=== PATIENT | female | born 1970 | race Caucasian/White ===

== ENCOUNTER 2023-04-02 13:45 | Emergency (ER) | payer OTHER ==
[2023-04-02 14:11] VITALS: TEMP 98.6
--- NOTE | 2023-04-02 14:15 | ERPHSYRPT ---
- History of Present Illness Time Seen by Provider: 04/02/23 14:15 Source: patient Exam Limitations: no limitations Patient Subjective Stated Complaint: headaches Triage Nursing Assessment: patient stated headaches started approx 3 weeks ago and has had them daily. no headache history Physician History: This is a 53-year-old white female patient of nurse practitioner Giuseppe who presents with a 3-week history of daily headaches. Despite the use of 2 Excedrin tablets today, her headache was worse. It is generalized in location and somewhat throbbing. Seems to be worse when she looks up or tilts her head upward as if looking into the taj. She has no visual changes. Prior to 3 weeks ago she is never had this type of issue. She denies trauma to the area. She has not had fever, chills. She denies chest pain. She is not on any new medications. Patient has a history of diabetes and hypertension Timing/Duration: week(s) (3) Quality: pressure Head Pain Location: global Severity of Pain-Max: moderate Severity of Pain-Current: moderate Recent Head Trauma: no recent headache/trauma Modifying Factors: Improves With: position (Worse when tilting her head up as if looking at the taj) Associated Symptoms: No dizziness, No seizures, No sensitive to light, No stiff neck, No vision changes Previous symptoms: no prior history, no recent treatment Allergies/Adverse Reactions: No Known Drug Allergies Allergy (Unverified 04/02/23 14:18) Home Medications: Lisinopril 20 mg [Zestril 20 MG] 20 mg PO DAILY 04/02/23 [History] Metformin HCl 1,000 mg PO BID 04/02/23 [History] Hx Tetanus, Diphtheria Vaccination/Date Given: Yes Hx Influenza Vaccination/Date Given: No Hx Pneumococcal Vaccination/Date Given: No Travel Risk - International Travel Have you traveled outside of the country in past 3 weeks: No - Coronavirus Screening Are you exhibiting any of the following symptoms?: No Close contact with a COVID-19 positive Pt in past 14-21 Days: No - Vaccine Status Have you recieved a Covid-19 vaccination: No - Review of Systems Constitutional: No Symptoms Eyes: No Symptoms Ears, Nose, & Throat: No Symptoms Respiratory: No Symptoms Cardiac: No Symptoms Abdominal/Gastrointestinal: No Symptoms Genitourinary Symptoms: No Symptoms Musculoskeletal: No Symptoms Skin: Skin Lesions Neurological: Headache Psychological: No Symptoms Endocrine: No Symptoms Hematologic/Lymphatic: No Symptoms Immunological/Allergic: No Symptoms All Other Systems: Reviewed and Negative - Past Medical History Pertinent Past Medical History: Yes Cardiac History: Hypertension Endocrine Medical History: Diabetes Type II - Past Surgical History Past Surgical History: No Gastrointestinal: Appendectomy Female Surgical History: Tubal Ligation - Social History Smoking Status: Former smoker Drug Use: none Patient Lives Alone: No - Nursing Vital Signs Nursing Vital Signs: Initial Vital Signs Temperature 98.6 F 04/02/23 14:00 Pulse Rate 109 H 04/02/23 14:00 Blood Pressure 143/86 04/02/23 14:00 O2 Sat by Pulse Oximetry 98 04/02/23 14:00 Pain Scale Pain Intensity 7 - Physical Exam General Appearance: no apparent distress, alert, anxiety Eye Exam: PERRL/EOMI, eyes nml inspection Ears, Nose, Throat Exam: normal ENT inspection, moist mucous membranes Neck Exam: normal inspection, non-tender, supple, full range of motion Respiratory Exam: normal breath sounds, lungs clear, respiratory distress, airway intact, No chest tenderness Cardiovascular Exam: regular rate/rhythm, normal heart sounds, normal peripheral pulses Gastrointestinal/Abdominal Exam: soft, normal bowel sounds, No tenderness Back Exam: normal inspection, normal range of motion, No CVA tenderness, No vertebral tenderness Extremity Exam: normal inspection, normal range of motion, pelvis stable Mental Status Exam: alert, 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, 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 Exam: normal hearing, normal speech, PERRL, tongue midline Coordination/Gait Exam: normal gait, normal cerebellar function Motor/Sensory Exam: no motor deficit, no sensory deficit, no pronator drift Skin Exam: normal color, warm, dry Lymphatic Exam: No adenopathy SpO2 Interpretation: normal SpO2: 98 O2 Delivery: Room Air - Course Nursing assessment & vital signs reviewed: Yes Ordered Tests: Active Orders 24 hr Category Date Time Status Computational Physicist STAT Care 04/02/23 14:49 Active EKG-ER Only STAT Care 04/02/23 14:49 Active IV Insertion STAT Care 04/02/23 14:49 Active NPO (ED) STAT Care 04/02/23 14:49 Active Pulse Oximetry (ED) STAT Care 04/02/23 14:49 Active HEAD WITHOUT CONTRAST [CT] Stat Exams 04/02/23 14:15 Completed MRI BRAIN W & W/O CONTRAST [MRI] Stat Exams 04/02/23 14:51 Completed CBC W DIFF Stat Lab 04/02/23 15:00 Completed CMP Stat Lab 04/02/23 15:00 Completed MONO SCREEN Stat Lab 04/02/23 15:38 Completed UA W/RFX UR CULTURE Stat Lab 04/02/23 15:58 Completed Medication Summary Generic Name Dose Route Start Last Admin Trade Name Bing PRN Reason Stop Dose Admin Ketorolac Tromethamine 30 mg 04/02/23 16:44 Ketorolac Tromethamine 30 Mg/Ml Inj IV 04/02/23 16:45 STAT ONE Morphine Sulfate 2 mg 04/02/23 16:44 Morphine Sulfate 2 Mg/Ml Inj IV 04/02/23 16:45 STAT ONE Prochlorperazine Edisylate 5 mg 04/02/23 16:44 Prochlorperazine Edisylate 10 Mg/2 Ml Vial IV 04/02/23 16:45 STAT ONE Discontinued Medications Generic Name Dose Route Start Last Admin Trade Name Bing PRN Reason Stop Dose Admin Hydrocodone Bitart/Acetaminophen 1 tab 04/02/23 14:50 04/02/23 14:56 Hydrocodone/Apap 5/325 1 Tab Tablet PO 04/02/23 14:51 1 tab STAT ONE Administration Hydrocodone Bitart/Acetaminophen Confirm 04/02/23 14:55 Hydrocodone/Apap 5/325 1 Tab Tablet Administered 04/02/23 14:56 Dose 1 tab .ROUTE .STK-MED ONE Lab/Rad Data: Laboratory Result Diagrams 04/02/23 15:00 04/02/23 15:00 Laboratory Results 04/02/23 04/02/23 04/02/23 Range/Units Unknown 15:58 15:38 WBC (4.0-10.5) x10^3/uL RBC (4.1-5.4) x10^6/uL Hgb (12.0-16.0) g/dL Hct (35-47) % MCV (78-100) fL MCH (26-32) pg MCHC (32-36) g/dL RDW (11.5-14.0) % Plt Count (150-450) x10^3/uL MPV (7.5-11.0) fL Gran % (36.0-66.0) % Immature Gran % (Auto) (0.00-0.4) % Nucleat RBC Rel Count (0.00-0.1) % Eos # (Auto) (0-0.5) x10^3/uL Immature Gran # (Auto) (0.00-0.03) x10^3u/L Absolute Lymphs (auto) (1.0-4.6) x10^3/uL Absolute Monos (auto) (0.0-1.3) x10^3/uL Absolute Nucleated RBC (0.00-0.01) x10^3u/L Lymphocytes % (24.0-44.0) % Monocytes % (0.0-12.0) % Eosinophils % (0.00-5.0) % Basophils % (0.0-0.4) % Absolute Granulocytes (1.4-6.9) x10^3/uL Basophils # (0-0.4) x10^3/uL Sodium (137-145) mmol/L Potassium (3.5-5.1) mmol/L Chloride (98-107) mmol/L Carbon Dioxide (22-30) mmol/L Anion Gap (5-15) MEQ/L BUN (7-17) mg/dL Creatinine (0.52-1.04) mg/dL Estimated GFR ML/MIN Glucose (74-106) mg/dL Calcium (8.4-10.2) mg/dL Total Bilirubin (0.2-1.3) mg/dL AST (14-36) U/L ALT (0-35) U/L Alkaline Phosphatase (38-126) U/L Serum Total Protein (6.3-8.2) g/dL Albumin (3.5-5.0) g/dL Urine Color Yellow (Yellow) Urine Appearance Clear (Clear) Urine pH 7.5 (4.6-8.0) Ur Specific [place] <=1.005 (1.005-1.030) Urine Protein Negative (Negative) Urine Glucose (UA) Negative (Negative) mg/dL Urine Ketones Negative (Negative) Urine Blood Negative (Negative) Urine Nitrite Negative (Negative) Urine Bilirubin Negative (Negative) Urine Urobilinogen 0.2 (0.2) mg/dL Ur Leukocyte Esterase Negative (Negative) U Hyaline Cast (Auto) NONE SEEN (0-2) /LPF Urine Microscopic RBC 0-2 (0-5) /HPF Urine Microscopic WBC 0-2 (0-5) /HPF Ur Epithelial Cells None Seen (None Seen) /HPF Urine Bacteria None Seen (None Seen) /HPF Urine Culture Reflexed NO (NO) Monoscreen NEGATIVE (NEGATIVE) Influenza Type A Ag NEGATIVE (NEGATIVE) Influenza Type B Ag NEGATIVE (NEGATIVE) RSV (PCR) NEGATIVE (NEGATIVE) SARS-CoV-2 (PCR) NEGATIVE (NEGATIVE) 04/02/23 04/02/23 Range/Units 15:00 15:00 WBC 5.1 (4.0-10.5) x10^3/uL RBC 4.31 (4.1-5.4) x10^6/uL Hgb 12.7 (12.0-16.0) g/dL Hct 38.5 (35-47) % MCV 89.3 (78-100) fL MCH 29.5 (26-32) pg MCHC 33.0 (32-36) g/dL RDW 12.1 (11.5-14.0) % Plt Count 247 (150-450) x10^3/uL MPV 10.4 (7.5-11.0) fL Gran % 56.8 (36.0-66.0) % Immature Gran % (Auto) 0.2 (0.00-0.4) % Nucleat RBC Rel Count 0.0 (0.00-0.1) % Eos # (Auto) 0.12 (0-0.5) x10^3/uL Immature Gran # (Auto) 0.01 (0.00-0.03) x10^3u/L Absolute Lymphs (auto) 1.53 (1.0-4.6) x10^3/uL Absolute Monos (auto) 0.52 (0.0-1.3) x10^3/uL Absolute Nucleated RBC 0.00 (0.00-0.01) x10^3u/L Lymphocytes % 30.0 (24.0-44.0) % Monocytes % 10.2 (0.0-12.0) % Eosinophils % 2.4 (0.00-5.0) % Basophils % 0.4 (0.0-0.4) % Absolute Granulocytes 2.90 (1.4-6.9) x10^3/uL Basophils # 0.02 (0-0.4) x10^3/uL Sodium 139 (137-145) mmol/L Potassium 3.8 (3.5-5.1) mmol/L Chloride 103 (98-107) mmol/L Carbon Dioxide 26 (22-30) mmol/L Anion Gap 12.9 (5-15) MEQ/L BUN 18 H (7-17) mg/dL Creatinine 0.86 (0.52-1.04) mg/dL Estimated GFR 81.2 ML/MIN Glucose 170 H (74-106) mg/dL Calcium 9.9 (8.4-10.2) mg/dL Total Bilirubin 0.20 (0.2-1.3) mg/dL AST 35 (14-36) U/L ALT 55 H (0-35) U/L Alkaline Phosphatase 57 (38-126) U/L Serum Total Protein 7.8 (6.3-8.2) g/dL Albumin 4.6 (3.5-5.0) g/dL Urine Color (Yellow) Urine Appearance (Clear) Urine pH (4.6-8.0) Ur Specific [place] (1.005-1.030) Urine Protein (Negative) Urine Glucose (UA) (Negative) mg/dL Urine Ketones (Negative) Urine Blood (Negative) Urine Nitrite (Negative) Urine Bilirubin (Negative) Urine Urobilinogen (0.2) mg/dL Ur Leukocyte Esterase (Negative) U Hyaline Cast (Auto) (0-2) /LPF Urine Microscopic RBC (0-5) /HPF Urine Microscopic WBC (0-5) /HPF Ur Epithelial Cells (None Seen) /HPF Urine Bacteria (None Seen) /HPF Urine Culture Reflexed (NO) Monoscreen (NEGATIVE) Influenza Type A Ag (NEGATIVE) Influenza Type B Ag (NEGATIVE) RSV (PCR) (NEGATIVE) SARS-CoV-2 (PCR) (NEGATIVE) - Progress Progress: re-examined Air Movement: good Progress Note: 04/02/23 15:42 This patient's medical issue is 1 of moderate complexity. Level complex in the workup performed is based on review of the patient's past medical history, review the patient's medication list, reviewed patient's drug allergy list, history present illness and physical findings on examination. Workup in this patient includes placement of intravenous line, urinalysis, CBC, CMP, viral studies, CT scan of the head. 04/02/23 16:28 CT scan of the head without contrast shows atrophy within normal limits for age. There is a remote lacunar infarct of the right basal ganglia 04/02/23 16:32 MRI of the brain with and without contrast was interpreted by the radiologist and I reviewed the impression. The impression states age-appropriate global atr ophy. Minimal periventricular degenerative micro ischemia bilaterally. Tiny remote lacunar infarct right basal ganglia. Remaining MRI of the brain with contrast negative. 04/02/23 16:46 I reviewed and interpreted the laboratory results. There are no acute, emergent laboratory result findings. Blood Culture(s) Obtained: No Antibiotics given: No Counseled pt/family regarding: lab results, diagnosis, need for follow-up, rad results Medical Desision Making - Diagnostic Testing Diagnostic test were ordered, analyzed, and reviewed by me: Yes Radiological Interpretation: Reviewed by me, Teleradiologist Report - Departure Departure Disposition: Home Clinical Impression: Headache Condition: Stable Critical Care Time: No Referrals: CONSUELO OLIVEROS NP [NON-STAFF PHY W/O PRIVILEGES] - Follow up/PCP as directed Additional Instructions: Call your primary care provider tomorrow, 04/03/2023 to make arranges for follow-up appointment for further evaluation and management and possible referral to a neurologist.
--- NOTE | 2023-04-02 14:37 | XRAY ---
Indication: Headache 3 weeks. Multiple contiguous axial images obtained through the head without contrast. Comparison: None Age-appropriate global atrophy. Small remote lacunar infarct right basal ganglia. No acute intracranial hemorrhage, abnormal extra axial fluid collection, or mass effect. Fourth ventricle is midline without hydrocephalus. Aguilar-white matter differentiation preserved. Bony calvarium intact.. Visualized paranasal sinuses and mastoid air cells are clear. Impression: Atrophy within normal limits for patient's age. Remote lacunar infarct right basal ganglia. Remaining CT head without contrast exam is negative.
[2023-04-02] MEDS ORDERED: NORCO 5/325 MG PO ONE (14:50)
[2023-04-02] MEDS ORDERED: NORCO 5/325 MG ONE (14:55)
[2023-04-02 15:41] LABS: INFLUENZA A NEGATIVE (NEGATIVE); INFLUENZA B NEGATIVE (NEGATIVE); RESPIRATORY SYNCTIAL VIRUS NEGATIVE (NEGATIVE); SARS-CoV-2 Xpert Express NEGATIVE (NEGATIVE)
[2023-04-02 15:57] LABS: BASOPHIL % 0.4 % (0.0-0.4); Basophil (Absolute #) 0.02 x10^3/uL (0-0.4); Eosinophil % 2.4 % (0.00-5.0); Eosinophil (Absolute #) 0.12 x10^3/uL (0-0.5); Hematocrit 38.5 % (35-47); Hemoglobin 12.7 g/dL (12.0-16.0); IMMATURE GRAN # 0.01 x10^3u/L (0.00-0.03); IMMATURE GRAN % 0.2 % (0.00-0.4); Lymphocyte (Absolute #) 1.53 x10^3/uL (1.0-4.6); Mean Cell Volume 89.3 fL (78-100); Mean Corpuscular Hemoglobin 29.5 pg (26-32); Mean Platelet Volume 10.4 fL (7.5-11.0); Monocyte (Absolute #) 0.52 x10^3/uL (0.0-1.3); Monocytes % 10.2 % (0.0-12.0); Neutrophil % 56.8 % (36.0-66.0); Platelet Count 247 x10^3/uL (150-450); Red Blood Count 4.31 x10^6/uL (4.1-5.4); Red Cell Distribution Width 12.1 % (11.5-14.0); White Blood Count 5.1 x10^3/uL (4.0-10.5)
[2023-04-02 16:03] LABS: ALBUMIN 4.6 g/dL (3.5-5.0); ANION GAP 12.9 MEQ/L (5-15); BILIRUBIN,TOTAL 0.2 mg/dL (0.2-1.3); Calcium 9.9 mg/dL (8.4-10.2); Creatinine 1 0.86 mg/dL (0.52-1.04); EST GLOMERULAR FILTRATION RATE 81.2 ML/MIN; Potassium 3.8 mmol/L (3.5-5.1); Total Protein 7.8 g/dL (6.3-8.2)
[2023-04-02 16:07] LABS: Appearance Clear (Clear); Bilirubin Negative (Negative); Blood Negative (Negative); Glucose, Urine Negative (Negative); Ketones Negative (Negative); Leukocyte Esterase Negative (Negative); Nitrite Negative (Negative); Ph 7.5 (4.6-8.0); Protein,Urine Dip Negative (Negative); Specific Gravity <=1.005 (1.005-1.030); Urobilinogen 0.2 mg/dL (0.2)
[2023-04-02 16:08] LABS: Bacteria None Seen /HPF (None Seen); Epithelial Cells None Seen /HPF (None Seen); Hyaline Casts NONE SEEN /LPF (0-2); RBC 0-2 /HPF (0-5); WBC 0-2 /HPF (0-5)
[2023-04-02 16:13] LABS: ADD URINE CULTURE? NO (NO)
[2023-04-02 16:21] VITALS: BP 167/95; PULSE 86; RESP 18
[2023-04-02 16:29] VITALS: O2SAT 98
--- NOTE | 2023-04-02 16:32 | XRAY ---
Indication: Headache 3 weeks. Sagittal, coronal, and axial MRI brain performed using pre and post T1, T2, FLAIR, diffusion, and ADC sequences. 15 cc Dotarem contrast used. Comparison: None Age-appropriate global atrophy and and minimal periventricular degenerative micro-ischemia bilaterally. Tiny remote lacunar infarct right basal ganglia. No acute intracranial hemorrhage, abnormal extra-axial fluid collection, or mass effect. Diffusion images negative for restricted signal. Following gadolinium, no abnormal enhancing intra or extra-axial mass. Fourth ventricle is midline without hydrocephalus. 7/8 cranial nerve complex bilaterally symmetric. Normal flow void signal within the major intracerebral circulation. Normal appearing craniocervical junction and sella turcica. Paranasal sinuses are clear. Impression: Atrophy and degenerative micro-ischemia within normal limits for patient's age. Remote lacunar infarct right basal ganglia. Remaining MRI brain with contrast exam is negative.
[2023-04-02] MEDS ORDERED: Compazine 10 MG/2 ML IV ONE (16:44)
[2023-04-02] MEDS ORDERED: MORPHINE SULFATE 2 MG INJ IV ONE (16:44)
[2023-04-02] MEDS ORDERED: TORAdol 30 mg Injection IV ONE (16:44)
[2023-04-02] MEDS ORDERED: MORPHINE SULFATE 2 MG INJ ONE (16:57)
[2023-04-02] MEDS ORDERED: Compazine 10 MG/2 ML ONE (16:57)
[2023-04-02] MEDS ORDERED: TORAdol 30 mg Injection ONE (16:57)
== END 2023-04-02 17:46 | disposition home or self-care (01) ==
LOC: ED 13:45
DX: R51.9 Headache, unspecified (principal); E11.9 Type 2 diabetes mellitus without complications; I10 Essential (primary) hypertension; Z79.84 Long term (current) use of oral hypoglycemic drugs; Z79.899 Other long term (current) drug therapy; Z28.310 Unvaccinated for COVID-19
CPT/HCPCS: 0241U; 36000; 36415; 70450; 70553; 80053; 81001; 85025; 86308; 93005; 94760; 96374; 96375; 99284; J1885; J2270; A9270-GY